=== PATIENT | female | born 1965 | race Caucasian/White ===

== ENCOUNTER → 2016-08-07 | Outpatient (CLI) | payer BC | LOC: MC.RAD 13:20 | DX: Z12.31 Encounter for screening mammogram for malignant neoplasm of breast (principal) ==

== ENCOUNTER → 2018-05-07 | Outpatient (CLI) | payer BC | LOC: MC.RAD 09:40 | DX: Z12.31 Encounter for screening mammogram for malignant neoplasm of breast (principal) ==

== ENCOUNTER → 2020-04-01 | Outpatient (CLI) | payer BC | LOC: MC.RAD 11:42 | DX: Z12.31 Encounter for screening mammogram for malignant neoplasm of breast (principal) ==

== ENCOUNTER 2021-07-21 09:30 | Outpatient (RCR) | payer BC | END 2021-07-25 | disposition home or self-care (01) | LOC: WSPT | DX: M65.812 Other synovitis and tenosynovitis, left shoulder (principal) ==

== ENCOUNTER → 2021-07-26 | Outpatient (CLI) | payer BC | LOC: MC.RAD 10:41 | DX: Z12.31 Encounter for screening mammogram for malignant neoplasm of breast (principal) ==

== ENCOUNTER 2021-07-29 09:45 | Outpatient (RCR) | payer BC | END 2021-08-25 | disposition home or self-care (01) | LOC: WSPT | DX: M65.812 Other synovitis and tenosynovitis, left shoulder (principal) ==

== ENCOUNTER → 2022-09-21 | Outpatient (CLI) | payer BC ==
[2006-05-04 07:00] VITALS: TEMP 98.1
== END ==
LOC: MC.RAD 09-20 11:30
DX: Z12.31 Encounter for screening mammogram for malignant neoplasm of breast (principal)